=== PATIENT | male | born 1960 | race African-American/Black ===

== ENCOUNTER 2016-11-17 07:18 | Day surgery (SDC) | payer BC ==
--- NOTE | ~2016-11-17 | EGD ---
EGD REPORT [facility] [address] [place] [address] NAME: ALEXANDRA MARKS : 58 STATUS : REG [facility] [place] PAT#: [id number] AGE: 56 ADM/REG DATE : 11/17/16 MR#: [id number] REPORT SERV DATE: 11/17/16 DICTATED BY: HEIDY CHEN DATE: 11/17/16 REPORT STATUS : Draft TRANSCRIBED BY: [facility] DATE: 11/17/16 Endoscopy Center Patient Name: Alexandra Marks Date of : 1960 Attending MD: HEIDY CHEN MD Procedure Date No Time: 11/17/2016 Procedure: Upper GI endoscopy Indications: Iron deficiency anemia secondary to chronic blood loss. Patient Profile: Informed consent was obtained from the patient by me prior to the procedure. Risks, benefits, and alternatives were discussed including the risk of bleeding, perforation, infection, reaction to medicine, missed lesion, and cardiopulmonary complications. Referring MD: FRIEDA SMITH Medicines: Monitored Anesthesia Care Complications: No immediate complications. Procedure: Pre-Anesthesia Assessment: - ASA Grade Assessment: III - A patient with severe systemic disease. After obtaining informed consent, the endoscope was passed under direct vision. Throughout the procedure, the patient's blood pressure, pulse, and oxygen saturations were monitored continuously. The GIF [id number] [id number] was introduced through the mouth, and advanced to the second part of duodenum. The endoscope was withdrawn with careful examination all mucosal surfaces including retroflexion stomach. The upper GI endoscopy was accomplished without difficulty. The patient tolerated the procedure well. Findings: The first part of the duodenum and 2nd part of the duodenum were normal. Biopsies were taken with a cold forceps for histology. A single large linear prominent fold with a localized distribution was found at 2nd part of the duodenum near ampulla. Biopsies were taken with a cold forceps for histology. Jar #1. Localized mildly erythematous mucosa was found in the second part of the duodenum fold just proximal to ampulla. Biopsies were taken with a cold forceps for histology. Jar #2. The entire examined stomach was normal. The examined esophagus was normal. The esophagus and gastroesophageal junction were examined with white light. There was no visual evidence of Thurman's esophagus. Impression: - Normal first part of the duodenum and 2nd part of the EGD REPORT [address] [place]. [address] NAME: ALEXANDRA MARKS : [birth year] STATUS : REG [facility]#: [id number] AGE: 56 ADM/REG DATE : 11/17/16 MR#: [id number] REPORT SERV DATE: 11/17/16 DICTATED BY: HEIDY CHEN DATE: 11/17/16 REPORT STATUS : Draft TRANSCRIBED BY: [facility] DATE: 11/17/16 duodenum. Biopsied. - Nodule found in the duodenum. Biopsied. - Erythematous duodenopathy. Biopsied. - Normal stomach. - Normal esophagus. - There is no endoscopic evidence of Thurman's esophagus. Recommendation: - Patient has a contact number available for emergencies. The signs and symptoms of potential delayed complications were discussed with the patient. Return to normal activities tomorrow. Written discharge instructions were provided to the patient. - Regular diet. - Continue present medications. - Await pathology results. Procedure Code(s): --- Professional --- 88424, Esophagogastroduodenoscopy, flexible, transoral; with biopsy, single or multiple Diagnosis Code(s): --- Professional --- K31.9, Disease of stomach and duodenum, unspecified K31.89, Other diseases of stomach and duodenum D50.0, Iron deficiency anemia secondary to blood loss (chronic) CPT copyright 2013 [employer]. All rights reserved. The codes documented in this report are preliminary and upon cfo controller review may be revised to meet current compliance requirements. HEIDY CHEN MD 11/17/2016 9:08 AM This report has been signed electronically. Number of Addenda: 0 Note Initiated On: 11/17/2016 8:41 AM Scope Withdrawal Time 0 hours 0 minutes 0 seconds [address] [id number]
--- NOTE | ~2016-11-17 | EGD ---
EGD REPORT [facility] [address] [place] [address] NAME: ALEXANDRA MARKS : [birth year] STATUS : REG [facility] [place] PAT#: [id number] AGE: 56 ADM/REG DATE : 11/17/16 MR#: [id number] REPORT SERV DATE: 11/17/16 DICTATED BY: HEIDY CHEN DATE: 11/17/16 REPORT STATUS : Draft [facility]ANSCRIBED BY: [facility] DATE: 11/17/16 Endoscopy Center Patient Name: Alexandra Marks Date of : 1960 Attending MD: HEIDY CHEN MD Procedure Date No Time: 11/17/2016 Procedure: Colonoscopy Indications: Iron deficiency anemia secondary to chronic blood loss; FHx CRC mother. Patient Profile: Informed consent was obtained from the patient by me prior to the procedure. Risks, benefits, and alternatives were discussed including the risk of bleeding, perforation, infection, reaction to medicine, missed lesion, and cardiopulmonary complications. Referring MD: FRIEDA SMITH Medicines: Monitored Anesthesia Care Complications: No immediate complications. Procedure: Pre-Anesthesia Assessment: - ASA Grade Assessment: III - A patient with severe systemic disease. After I obtained informed consent, the scope was passed under direct vision. Throughout the procedure, the patient's blood pressure, pulse, and oxygen saturations were monitored continuously. The CF [id number] was introduced through the anus and advanced to the cecum, identified by appendiceal orifice and ileocecal valve. The colonoscope was slowly withdrawn with careful examination all mucosal surfaces including specific attention around flexures and tip deflection behind folds; retroflexion performed in rectum. The colonoscopy was performed without difficulty. The patient tolerated the procedure well. The quality of the bowel preparation was adequate. The ileocecal valve, appendiceal orifice and rectum were photographed. Findings: A sessile polyp was found at the hepatic flexure. The polyp was 5 mm in size. The polyp was removed with a cold biopsy forceps. Resection and retrieval were complete. Two sessile polyps were found in the transverse colon. The polyps were 5 mm in size. These polyps were removed with a cold biopsy forceps. Resection and retrieval were complete. A few small-mouthed diverticula were found in the sigmoid colon. Impression: - One 5 mm polyp at the hepatic flexure. Resected and EGD REPORT [address] [place]. [address] NAME: ALEXANDRA MARKS : [birth year] STATUS : REG [facility]#: [id number] AGE: 56 ADM/REG DATE : 11/17/16 MR#: [id number] REPORT SERV DATE: 11/17/16 DICTATED BY: HEIDY CHEN DATE: 11/17/16 REPORT STATUS : Draft TRANSCRIBED BY: [employer] DATE: 11/17/16 retrieved. - Two 5 mm polyps in the transverse colon. Resected and retrieved. - Diverticulosis in the sigmoid colon. Recommendation: - Patient has a contact number available for emergencies. The signs and symptoms of potential delayed complications were discussed with the patient. Return to normal activities tomorrow. Written discharge instructions were provided to the patient. - Regular diet. - Continue present medications. - Await pathology results. - Repeat colonoscopy for surveillance based on pathology results. Procedure Code(s): --- Professional --- 45484, Colonoscopy, flexible, proximal to splenic flexure; with biopsy, single or multiple Diagnosis Code(s): --- Professional --- D12.3, Benign neoplasm of transverse colon K57.30, Diverticulosis of large intestine without perforation or abscess without bleeding D50.0, Iron deficiency anemia secondary to blood loss (chronic) CPT copyright 2013 [employer]. All rights reserved. The codes documented in this report are preliminary and upon etl bi developer review may be revised to meet current compliance requirements. HEIDY CHEN MD 11/17/2016 9:27 AM This report has been signed electronically. Number of Addenda: 0 Note Initiated On: 11/17/2016 8:47 AM [address] [id number]
[~2016-11-17 07:18] MED LIST: *DENIES; ASAB PO; B12250T PO; COZ50 PO; CYANO1000T PO; DIOV80 PO; L40 PO; LIPITOR40 PO; MOBIC15 MG PO; Vitamin D3 PO; ZESTORETIC1 TAB PO
[2016-12-24] MEDS ORDERED: CITRACAL PO (12:47)
[2016-12-24] MEDS ORDERED: MULTIVIT/MIN PO (12:47)
[2016-12-24] MEDS ORDERED: IRON TAB PO (12:48)
== END 2016-11-17 23:59 | disposition home or self-care (01) ==
LOC: DMU 07:18
PROVIDERS: Internal Medicine Gastroenterology
PROC: 0DBK8ZZ Excision of Ascending Colon, Via Natural or Artificial Opening Endoscopic (ICD-10-PCS; 2016-11-17)
PROC: 0DB98ZX Excision of Duodenum, Via Natural or Artificial Opening Endoscopic, Diagnostic (ICD-10-PCS; principal; 2016-11-17 08:30)
PROC: 0DBL8ZZ Excision of Transverse Colon, Via Natural or Artificial Opening Endoscopic (ICD-10-PCS; 2016-11-17 08:30)
DX: D12.3 Benign neoplasm of transverse colon (principal); D12.2 Benign neoplasm of ascending colon; D13.2 Benign neoplasm of duodenum; K29.80 Duodenitis without bleeding; K57.30 Diverticulosis of large intestine without perforation or abscess without bleeding; K31.9 Disease of stomach and duodenum, unspecified; K31.89 Other diseases of stomach and duodenum; I10 Essential (primary) hypertension; G47.33 Obstructive sleep apnea (adult) (pediatric); M19.90 Unspecified osteoarthritis, unspecified site; E78.00 Pure hypercholesterolemia, unspecified; Z90.79 Acquired absence of other genital organ(s); Z99.81 Dependence on supplemental oxygen
CPT/HCPCS: 88305

== ENCOUNTER 2016-12-28 09:13 | Day surgery (SDC) | payer BC ==
--- NOTE | ~2016-12-28 | EGD ---
EGD REPORT [facility] [address] [place] [address] NAME: ALEXANDRA MARKS : [birth year] STATUS : REG [facility] [place] PAT#: [id number] AGE: 56 ADM/REG DATE : 12/28/16 MR#: [id number] REPORT SERV DATE: 12/28/16 DICTATED BY: WESLEY MOREJON DATE: 12/28/16 REPORT STATUS : Draft TRANSCRIBED BY: [employer] DATE: 12/28/16 Endoscopy Center Patient Name: Alexandra Marks Date of : 1960 Attending MD: WESLEY MOREJON, Procedure Date No Time: 12/28/2016 Procedure: Upper EUS Indications: Duodenal mucosal mass/polyp found on endoscopy Referring MD: HEIDY SAGE MD Medicines: Monitored Anesthesia Care Complications: No immediate complications. Estimated blood loss: None. Procedure: Pre-Anesthesia Assessment: - ASA Grade Assessment: III - A patient with severe systemic disease. After obtaining informed consent, the endoscope was passed under direct vision. Throughout the procedure, the patient's blood pressure, pulse, and oxygen saturations were monitored continuously. The Endoscope was introduced through the mouth, and advanced to the second part of duodenum. The GIF [id number] was introduced through the mouth, and advanced to the second part of duodenum. Findings: Endoscopic Finding : The examined esophagus was endoscopically normal. The entire examined stomach was endoscopically normal. A single 50 mm sessile polyp with no bleeding was found in the second part of the duodenum. This was occupying slightly greater than 1/2 the circumference and extending over at least 3-4 folds. It was sessile with some flat areas. The lesion was not involving the ampulla but was coming within about 2 cm from the ampulla. Biopsies were taken with a cold forceps for histology. Verification of patient identification for the specimen was done. Estimated blood loss was minimal. The area of the papilla was normal. Endosonographic Finding : An intramural (subepithelial) lesion was found in the second portion of the duodenum. Endosonographically, the lesion appeared to originate from within the luminal interface/superficial mucosa (Layer 1). The lesion also appeared to involve the following wall layer(s): deep mucosa (Layer 2). The outer margins were well defined. There was no sign of significant endosonographic abnormality in the entire pancreas. The pancreas was well visualized, no pathologic lymphadenopathy, no masses, the pancreatic duct was well visualized from ampulla to tail, the pancreatic duct was regular in contour. EGD REPORT [address] [address] NAME: ALEXANDRA MARKS : [birth year] STATUS : REG [facility] [place] PAT#: [id number] AGE: 56 ADM/REG DATE : 12/28/16 MR#: [id number] REPORT SERV DATE: 12/28/16 DICTATED BY: WESLEY MOREJON DATE: 12/28/16 REPORT STATUS : Draft TRANSCRIBED BY: [employer] DATE: 12/28/16 There was no sign of significant endosonographic abnormality in the common bile duct. An unremarkable gallbladder was identified. No lymphadenopathy seen. Impression: - Normal esophagus. - Normal stomach. - A single duodenal polyp. Biopsied. - Normal area of the papilla. - An intramural (subepithelial) lesion was found in the second portion of the duodenum. The lesion appeared to originate from within the luminal interface/superficial mucosa (Layer 1). - There was no sign of significant pathology in the entire pancreas. - There was no sign of significant pathology in the common bile duct. Recommendation: - Return to previous diet. - Continue present medications. - Await path results. Lesion is very large and borderline endoscopically resectable. Will discuss with surgeon the surgical options and discuss in detail with patient once pathology returns. Procedure Code(s): --- Professional --- 31215, Esophagogastroduodenoscopy, flexible, transoral; with endoscopic ultrasound examination, including the esophagus, stomach, and either the duodenum or a surgically altered stomach where the jejunum is examined distal to the anastomosis 82265, 59, Esophagogastroduodenoscopy, flexible, transoral; with biopsy, single or multiple Diagnosis Code(s): --- Professional --- K31.7, Polyp of stomach and duodenum K31.89, Other diseases of stomach and duodenum K31.9, Disease of stomach and duodenum, unspecified CPT copyright 2013 [employer]. All rights reserved. The codes documented in this report are preliminary and upon cheese weigher review may be revised to meet current compliance requirements. WESLEY MOREJON, 12/28/2016 11:29 AM EGD REPORT [address] [place]. [address] NAME: ALEXANDRA MARKS : [birth year] STATUS : REG [facility] [place] PAT#: [id number] AGE: 56 ADM/REG DATE : 12/28/16 MR#: [id number] REPORT SERV DATE: 12/28/16 DICTATED BY: WESLEY MOREJON DATE: 12/28/16 REPORT STATUS : Draft TRANSCRIBED BY: [employer] DATE: 12/28/16 Number of Addenda: 0 Note Initiated On: 12/28/2016 10:28 AM Scope Withdrawal Time 0 hours 0 minutes 0 seconds
[~2016-12-28 09:13] MED LIST changes: +CITRACAL PO; +IRON TAB PO; +MULTIVIT/MIN PO
[2016-12-28 10:04] LABS: BUN (BLOOD UREA NITROGEN) 11 MG/DL (6-23); CALCIUM, SERUM 8.5 MG/DL (8.5-10.4); CHLORIDE, SERUM 110 MMOL/L (96-112); CO2 (CARBON DIOXIDE) 26 MMOL/L (24-34); CREATININE 0.78 MG/DL (0.70-1.30); GFR AFRICAN AMERICAN 116 ML/MIN (>=60); GFR NON AFRICAN AMERICAN 100 ML/MIN (>=60); GLUCOSE, SERUM 99 MG/DL (60-99); POTASSIUM, SERUM 3.6 MMOL/L (3.5-5.3); SODIUM, SERUM 143 MMOL/L (135-148)
== END 2016-12-28 23:59 | disposition home or self-care (01) ==
LOC: DMU 09:13
PROVIDERS: Internal Medicine Gastroenterology
PROC: 0DJ08ZZ Inspection of Upper Intestinal Tract, Via Natural or Artificial Opening Endoscopic (ICD-10-PCS; 2016-12-28)
PROC: 0DB98ZX Excision of Duodenum, Via Natural or Artificial Opening Endoscopic, Diagnostic (ICD-10-PCS; principal; 2016-12-28 10:30)
DX: D13.2 Benign neoplasm of duodenum (principal); I10 Essential (primary) hypertension; E78.5 Hyperlipidemia, unspecified; E66.01 Morbid (severe) obesity due to excess calories; Z68.42 Body mass index [BMI] 45.0-49.9, adult; D50.9 Iron deficiency anemia, unspecified; M19.90 Unspecified osteoarthritis, unspecified site; G47.33 Obstructive sleep apnea (adult) (pediatric); Z99.89 Dependence on other enabling machines and devices; Z90.79 Acquired absence of other genital organ(s); Z85.46 Personal history of malignant neoplasm of prostate; Z79.82 Long term (current) use of aspirin; Z79.1 Long term (current) use of non-steroidal anti-inflammatories (NSAID); Z79.899 Other long term (current) drug therapy; Z98.890 Other specified postprocedural states
CPT/HCPCS: 80048; 88305; C1725